=== PATIENT | male | born 1995 | race Two or more races ===

== ENCOUNTER 2021-01-23 16:27 | Emergency (ER) | payer OTHER ==
[~2021-01-23] VITALS: Ht 175.3 cm; Wt 85.0 kg
[2021-01-23] MEDS ORDERED: HYDROCODONE/ACETAMINOPHEN 5/325MG TABLET PO ONE (17:15)
[2021-01-23 17:45] VITALS: BP 123/67
[2021-01-23] MEDS ORDERED: HYDR-4346 MT (17:57)
[2021-01-23] MEDS ORDERED: IBUP-2029 MT (17:57)
== END 2021-01-23 18:51 | disposition home or self-care (01) ==
LOC: ER 16:27
DX: S42.024A Nondisplaced fracture of shaft of right clavicle, initial encounter for closed fracture (principal); W01.0XXA Fall on same level from slipping, tripping and stumbling without subsequent striking against object, initial encounter; Y93.02 Activity, running; Y92.89 Other specified places as the place of occurrence of the external cause
CPT/HCPCS: 73030; 99283; A4565